=== PATIENT | female | born 1985 | race Caucasian/White ===

== ENCOUNTER 2016-04-21 14:21 | Emergency (ER) | payer OTHER ==
[~2016-04-21] VITALS: Ht 172.7 cm; Wt 75.8 kg
[2016-04-21 15:09] LABS: ABSOLUTE NEUTROPHILS 4.3 thou/uL (1.4-8.2); BASOPHILS 1.1 % (0.0-2.0); HEMATOCRIT 38.7 % (37.0-47.0); HEMOGLOBIN 12.4 gm/dL (12.0-15.0); LYMPHOCYTES 32.4 % (24.0-44.0); MCH 23.8 pg (26.0-34.0); MCHC 32.1 % (28.0-37.0); MCV 74.3 fL (80.0-100.0); MONOCYTES 5.2 % (1.0-8.0); PLATELET COUNT 227 thou/uL (150-400); POLYS 58.3 % (36.0-66.0); RBC 5.21 mil/uL (4.20-5.00); RDW 17.7 % (10.5-14.5); WBC 7.4 thou/uL (4.0-11.0)
[2016-04-21 15:13] LABS: URINE BILIRUBIN NEGATIVE (Negative); URINE BLOOD 3+ (Negative); URINE COLOR YELLOW; URINE GLUCOSE-RANDOM* NEGATIVE (Negative); URINE KETONES NEGATIVE (Negative); URINE LEUKOCYTES-REFLEX NEGATIVE (Negative); URINE PROTEIN (DIPSTICK) NEGATIVE (Negative); URINE UROBILINOGEN 0.2 E.U./dl (0.2-1.0)
[2016-04-21 15:15] LABS: CREATININE 1.1 mg/dL (0.6-1.3); MANUAL DIFF NO
[2016-04-21 15:21] LABS: ALBUMIN 3.9 g/dL (3.4-5.0); TOTAL BILIRUBIN 0.3 mg/dL (<0.1-1.0); TOTAL PROTEIN 7.6 g/dL (6.4-8.2)
[2016-04-21 15:22] LABS: CASTS None Seen /LPF (None Seen); CRYSTALS None Seen /LPF (None Seen); SQUAMOUS 4-10 Moderate /LPF (0-3); URINE RBC 3-10 Few /HPF (0-2); URINE WBC-REFLEX 0-5 Rare /HPF (0-5)
[2016-04-21] MEDS ORDERED: ONDANSETRON HCL4 M2 PO (15:58)
[2016-04-21] MEDS ORDERED: TORADOL 10 MG T10 MG PO (15:58)
[2016-04-21 16:51] VITALS: BP 103/50
== END 2016-04-21 16:53 | disposition home or self-care (01) ==
LOC: ER 14:21
PROVIDERS: Emergency Medicine
DX: R10.30 Lower abdominal pain, unspecified (principal); F17.200 Nicotine dependence, unspecified, uncomplicated; F10.99 Alcohol use, unspecified with unspecified alcohol-induced disorder; F12.90 Cannabis use, unspecified, uncomplicated